=== PATIENT | male | born 2000 | race Caucasian/White ===

== ENCOUNTER 2022-06-11 15:31 | Emergency (ER) | payer OTHER, BC ==
[~2022-06-11 15:31] MED LIST: Iopamidol 370 76% 100 ML VIAL ONE; Sodium Chloride 0.9% 1,000 ML BAG ONE
[2022-06-11] MEDS ORDERED: Ketorolac Tromethamine 30 MG/ML VIAL ONE (16:06)
[2022-06-11 16:33] LABS: Bilirubin Small (Negative); Blood, Urine Large (Negative); Glucose, Urine (Dipstick) 100 mg/dL (Negative); Ketone, Urine 15 mg/dL (Negative); Leukocyte Negative (Negative); Nitrite Negative (Negative); Protein, Urine (Dipstick) > or equal to 300 mg/dL (Neg-Trace); Urobilinogen 0.2 mg/dL (Less than 2)
[2022-06-11 16:36] LABS: Clarity Cloudy (Clear); Specific Gravity, Urine 1.024 (1.002-1.036)
[2022-06-11 16:41] LABS: Bacteria/HPF 1+ HPF (None Seen); RBC/HPF Greater than 50 HPF (0-3); Sperm/HPF 4+ HPF (None Seen)
[2022-06-11 16:48] LABS: Band 6 % (5-11); Giant Platelets SLIGHT; Hemoglobin 15.5 g/dL (14.0-18.0); Large Platelets SLIGHT; Lymphocytes 5 % (28-48); MDiff Complete? YES; Mean Corpuscular HGB CONC 32.2 g/dL (32.0-36.0); Mean Corpuscular Hemoglobin 28.2 pg (25.0-35.0); Mean Corpuscular Volume 87.5 fl (78.0-98.0); Mean Platelet Volume 13.3 fL (7.4-10.4); Monocytes 4 % (0-4); Neutrophil 76 % (31-61); Platelet Count 289 10x3/uL (130-400); Platelet Morphology Comment Appears Adequate; RBC Distribution Width 12.9 % (11.5-14.5); RBC Morphology Normal; Reactive Lymphocytes 9 % (0-10); White Blood Cell (WBC) Count 22.8 10x3/uL (4.8-10.8)
[2022-06-11 16:49] LABS: ALT (SGPT) 88 U/L (8-55); AST (SGOT) 64 U/L (10-45); Albumin 4.7 g/dL (3.5-5.0); Alkaline Phosphatase 81 U/L (50-130); Anion Gap 19 mmol/L (10-20); BUN (Urea Nitrogen) 8 mg/dL (8.4-21.0); Bilirubin, Total 0.7 mg/dL (0.2-1.2); CK (CPK) 293 U/L (30-200); Calc. Creatinine Clearance 0 mL/min (70-130); Calcium 9.7 mg/dL (7.8-10.44); Carbon Dioxide 23 mmol/L (22-29); Chloride 103 mmol/L (98-107); Estimated GFR 88; Globulin 3.3 g/dL (2.4-3.5); Glucose 136 mg/dL (70-105); Lipase 31 U/L (8-78); Potassium 4.2 mmol/L (3.5-5.1); Sodium 141 mmol/L (136-145)
[2022-06-11] MEDS ORDERED: Sodium Chloride 0.9% 1,000 ML ONE (17:33)
[2022-06-11 22:03] LABS: Hemoglobin 14.2 g/dL (14.0-18.0)
== END 2022-06-11 22:31 | disposition short-term general hospital (02) ==
LOC: MADERS 15:31
DX: S30.1XXA Contusion of abdominal wall, initial encounter (principal); S70.12XA Contusion of left thigh, initial encounter; R31.9 Hematuria, unspecified; E66.9 Obesity, unspecified; V49.40XA Driver injured in collision with unspecified motor vehicles in traffic accident, initial encounter
CPT/HCPCS: 36415; 74177; 80053; 81003; 81015; 82550; 83690; 85025; 96374; J1885; J7050; Q9967